=== PATIENT | male | born 1990 | race Caucasian/White ===

== ENCOUNTER 2018-11-29 21:52 | Emergency (ER) | payer OTHER ==
[2018-11-29 21:57] VITALS: TEMP 98.1; BMI 24.4
[2018-11-29] MEDS ORDERED: ASPIRIN 325 MG ENTERIC COATED TABLET (FP) PO ONE (23:35)
[2018-11-29] MEDS ORDERED: ASPIRIN 81 MG CHEWABLE TABLETS ONE (23:51)
[2018-11-29 23:54] LABS: BASO % 0.8 % (0-2.0); EOS % 1.7 % (0-4.5); HEMATOCRIT 41.7 % (35.4-49); HEMOGLOBIN 14.1 GM/dL (11.7-16.9); LYMPH % 26.3 % (8-40); MCH 33.2 pg (25.7-33.7); MCHC 33.8 g/dl (32.0-35.9); MEAN CELL VOLUME 98.2 fl (80-96); MEAN PLT VOLUME 8.8 fl (7.5-11.1); MONO % 8.6 % (3.8-10.2); NEUT % 62.6 % (42.8-82.8); PLATELET COUNT 193 K/MM3 (134-434); RBC 4.25 M/mm3 (4.00-5.60); RDW 12.7 % (11.9-15.9); WHITE BLOOD COUNT 8.8 K/mm3 (4.0-10.0)
[2018-11-30 00:21] LABS: BILIRUBIN,TOTAL 0.6 mg/dL (0.2-1); BLOOD UREA NITROGEN 22.5 mg/dL (7-18); POTASSIUM 4.1 mmol/L (3.5-5.1); TOT PROT 6.7 g/dl (6.4-8.2)
[2018-11-30] MEDS ORDERED: LIDOCAINE 5% TOPICAL PATCH TP ONE (00:55)
[2018-11-30] MEDS ORDERED: LIDOCAINE 5% TOPICAL PATCH ONE (01:01)
[2018-11-30 01:11] VITALS: BP 98/87; PULSE 68
--- NOTE | 2018-11-30 04:52 | PDOC ---
Documentation entered by Marie Elizondo SCRIBE, acting as scribe for Judith Gómez MD. Judith Gómze MD: This documentation has been prepared by the Mikhail benjamin Nirvannie, SCRIBE, under my direction and personally reviewed by me in its entirety. I confirm that the documentation accurately reflects all work, treatment, procedures, and medical decision making performed by me. History of Present Illness - General Chief Complaint: Chest Pain Stated Complaint: SHAKING Time Seen by Provider: 11/29/18 23:15 History Source: Spouse - History of Present Illness Initial Comments: 11/30/18 00:20 The patient is a 28 year old male, with no significant past medical history, who presents to the emergency department s/p transient episode of full body convulsion followed by transient episode of chest pain lasting 5 minutes. As per patients at bedside, he was lying in bed at which time he had an episode of full body convulsions at 9pm which lasted seconds. She then notes a 5 -10min episode of upper left chest pressure. While in the ED, patient notes to be asymptomatic. He denies any recent palpitations, diaphoresis, or shortness of breath. He denies any recent fevers, chills, headache or dizziness. He denies any recent nausea, vomit, diarrhea or constipation. He denies any recent dysuria, frequency , urgency or hematuria. Allergies: NKDA Past History - Past Medical History Allergies/Adverse Reactions: Allergies Allergy/AdvReac Type Severity Reaction Status Date / Time No Known Allergies Allergy Verified 04/30/15 18:24 Home Medications: Ambulatory Orders Ranitidine HCl [Zantac] 150 mg PO DAILY #14 capsule 04/29/15 Omeprazole [Prilosec] 40 mg PO DAILY #30 capsule. 04/30/15 Lidocaine 5% Patch [Lidoderm Patch -] 1 patch TP DAILY #30 patch 11/30/18 - Surgical History Appendectomy: Yes - Psycho Social/Smoking Cessation Hx Smoking History: Never smoked Hx Alcohol Use: No Drug/Substance Use Hx: Yes (marijuana) Substance Use Type: None Review of Systems - Review of Systems Able to Perform ROS?: Yes Comments:: 11/30/18 00:20 GENERAL/CONSTITUTIONAL: No fever or chills. No weakness. HEAD, EYES, EARS, NOSE AND THROAT: No change in vision. No ear pain or discharge. No sore throat. CARDIOVASCULAR: +Transient episode of chest pain. No shortness of breath. RESPIRATORY: No cough, wheezing, or hemoptysis. GASTROINTESTINAL: No nausea, vomiting, diarrhea or constipation. GENITOURINARY: No dysuria, frequency, or change in urination. MUSCULOSKELETAL: No joint or muscle swelling or pain. No neck or back pain. SKIN: No rash NEUROLOGIC: +Transient episode of full body convulsion. No headache, vertigo, loss of consciousness, or change in strength/sensation. ENDOCRINE: No increased thirst. No abnormal weight change. HEMATOLOGIC/LYMPHATIC: No anemia, easy bleeding, or history of blood clots. ALLERGIC/IMMUNOLOGIC: No hives or skin allergy. All Other Systems: Reviewed and Negative *Physical Exam - Vital Signs Last Vital Signs Temp Pulse Resp BP Pulse Ox 98.1 F 65 19 95/86 97 11/29/18 21:54 11/29/18 21:54 11/29/18 21:54 11/29/18 21:54 11/29/18 21:54 - Physical Exam Comments: 11/30/18 01:02 GENERAL: Awake, alert, and fully oriented, in no acute distress HEAD: No signs of trauma EYES: PERRLA, EOMI, sclera anicteric, conjunctiva clear ENT: Auricles normal inspection, hearing grossly normal, nares patent, oropharynx clear without exudates. Moist mucosa NECK: Normal ROM, supple, no lymphadenopathy, JVD, or masses LUNGS: Breath sounds equal, clear to auscultation bilaterally. No wheezes, and no crackles HEART: Regular rate and rhythm, normal S1 and S2, no murmurs, rubs or gallops ABDOMEN: Soft, nontender, normoactive bowel sounds. No guarding, no rebound. No masses EXTREMITIES: Normal range of motion, no edema. No clubbing or cyanosis. No cords, erythema, or tenderness NEUROLOGICAL: Cranial nerves II through XII grossly intact. Normal speech SKIN: Warm, Dry, normal turgor, no rashes or lesions noted. ED Treatment Course - LABORATORY CBC & Chemistry Diagram: 11/29/18 23:48 11/29/18 23:48 - ADDITIONAL ORDERS Additional order review: Laboratory Results 11/29/18 11/29/18 23:48 23:48 Sodium 143 Potassium 4.1 Chloride 108 H Carbon Dioxide 30 Anion Gap 6 L BUN 22.5 H Creatinine 1.0 Est GFR (CKD-EPI)AfAm 117.36 Est GFR (CKD-EPI)NonAf 101.26 Random Glucose 77 Calcium 9.0 Total Bilirubin 0.6 AST 20 ALT 16 Alkaline Phosphatase 51 Creatine Kinase 347 H Creatine Kinase Index 0.7 CK-MB (CK-2) 2.6 Troponin I < 0.02 Total Protein 6.7 Albumin 4.0 11/29/18 23:48 RBC 4.25 MCV 98.2 H MCHC 33.8 RDW 12.7 MPV 8.8 Neutrophils % 62.6 Lymphocytes % 26.3 D Monocytes % 8.6 D Eosinophils % 1.7 Basophils % 0.8 D - RADIOLOGY Radiology Studies Ordered: Category Date Time Status CHEST PA & LAT [RAD] Stat Radiology 11/29/18 23:15 Taken - Medications Given in the ED: ED Medications Discontinued Medications Generic Name Dose Route Start Last Admin Trade Name Freq PRN Reason Stop Dose Admin Aspirin 325 mg 11/29/18 23:35 11/29/18 23:52 Ecotrin - PO 11/29/18 23:36 325 mg ONCE ONE Administration Medical Decision Making - Medical Decision Making 11/30/18 04:51 Normal CXR and labs; CPK slight elevation; pt works as a machinery mechanic. EKG pt has RSr' and he was given a copy of EKG and asked to show it to PMD and get a cardio appt. Discharge - Discharge Information Problems reviewed: Yes Clinical Impression/Diagnosis: Atypical chest pain Condition: Stable Disposition: HOME - Additional Discharge Information Prescriptions: Lidocaine 5% Patch [Lidoderm Patch -] 1 patch TP DAILY #30 patch - Follow up/Referral - Patient Discharge Instructions Patient Printed Discharge Instructions: DI for Atypical Chest Pain - Post Discharge Activity
--- NOTE | 2018-11-30 15:54 | EKG ---
Test Reason : Blood Pressure : / mmHG Vent. Rate : 057 BPM Atrial Rate : 057 BPM P-R Int : 154 ms QRS Dur : 090 ms QT Int : 394 ms P-R-T Axes : 065 049 049 degrees QTc Int : 383 ms SINUS BRADYCARDIA OTHERWISE NORMAL ECG NO PREVIOUS ECGS AVAILABLE Confirmed by BRANDI HINTON MD ([id number]) on 11/30/2018 3:54:16 PM Referred By: Confirmed By:BRANDI HINTON MD
[2018-11-30] MEDS ORDERED: LIDOCAINE PATCH REMOVAL MC SCH (22:00)
== END 2018-11-30 01:11 | disposition home or self-care (01) ==
LOC: JER 21:52
DX: R07.89 Other chest pain (principal)
CPT/HCPCS: 36415; 71046-TC-FY; 80053; 82550; 82553; 84484; 85025; 93005; 93010; 99282-25

== ENCOUNTER 2024-09-11 18:48 | Emergency (ER) | payer OTHER ==
[2024-09-11 18:57] VITALS: BP 99/70; PULSE 60; RESP 20; TEMP 98.4; BMI 26.5
[2024-09-11 20:20] LABS: MCHC 33.5 g/dl (32.3-36.5); MEAN CELL VOLUME 97.9 fl (79.0-92.2); MEAN PLT VOLUME 11.0 fl (9.4-12.4); RDW 11.9 % (12.0-15.6)
[2024-09-11 20:54] LABS: CO2 31.0 mmol/L (21-32)
[2024-09-11 20:55] LABS: GLUCOSE,RANDOM 93.0 mg/dL (74-106)
[2024-09-11 20:57] LABS: SGPT/ALT 21.0 U/L (13-61)
[2024-09-11 20:58] LABS: CREATININE 1.0 mg/dL (0.55-1.3); SGOT/AST 39.0 U/L (15-37)
[2024-09-11 20:59] LABS: TOT PROT 7.2 g/dl (6.4-8.2)
[2024-09-11 21:01] LABS: ALK PHOS 51.0 U/L (45-117)
[2024-09-11 22:03] LABS: HIV INTERPRETATION NEGATIVE (NEGATIVE)
[2024-09-11 22:07] LABS: HCV DIAGNOSTIC IN-HOUSE W/RFLX NON-REACTIVE (NONREACTIVE)
== END 2024-09-12 00:07 | disposition home or self-care (01) ==
LOC: JER 18:48
DX: R59.0 Localized enlarged lymph nodes (principal); R13.10 Dysphagia, unspecified; B34.9 Viral infection, unspecified
CPT/HCPCS: 36415; 80053; 85027; 86803; 87389; 87651; 99283-25